=== PATIENT | female | born 1955 | race Caucasian/White ===

== ENCOUNTER 2020-03-25 07:36 | Day surgery (SDC) | payer OTHER ==
[~2020-03-25 07:36] MED LIST: ALBU90OI61 INH; ANAS1 PO; BGALA3.3 PO; Biotin1 MG PO; Boniva150 MG PO; CITA20 PO; CYCL10 PO; Centrum Silver1 EAC1 PO; FISH1000; Flonase 0.05% N16 GM; LINZESS145 MCG PO; LISI5 PO; Lovastatin10 MG PO; NAPR220; OMEP20ER PO; Slow Release I160 MG PO; Synthroid112 MCG PO; VITAMIN D31000 UNIT PO
== END 2020-03-25 23:21 | disposition home or self-care (01) ==
LOC: MOI US 07:36 → MOI MAM 08:00 → MOI US 08:00
DX: N64.1 Fat necrosis of breast (principal); N61.0 Mastitis without abscess; Z85.3 Personal history of malignant neoplasm of breast
CPT/HCPCS: 19083; 77065; 88305; 88342; A4648